=== PATIENT | female | born 1935 | race African-American/Black ===

== ENCOUNTER 2021-08-22 04:07 | Inpatient (IN) | payer MEDICARE, MEDICAID ==
[~2021-08-22] VITALS: Ht 172.7 cm; Wt 81.2 kg
[~2021-08-22 04:07] MED LIST: AMLO5TAB4; GABA-532 PO; LISI20TA31 PO; LORA1TAB PO; METO25TA6 PO; TRAM50TA3 PO
[2021-08-22] MEDS ORDERED: NITROGLYCERIN OINT 1GM/INCH UDPKT TD ONE (04:30)
[2021-08-22 05:05] LABS: BASOPHILS % 0.5 % (0.0-2.0); HEMATOCRIT. 39.5 % (36.0-48.0); HEMOGLOBIN. 13.2 g/dL (12.0-16.0); LYMPHOCYTES % 19.3 % (20.0-50.0); MEAN CORPUSCULAR HEMOGLOBIN 30.6 pg (28.0-32.0); MEAN PLATELET VOLUME 7.9 fl (7.4-10.4); MONOCYTES % 6.8 % (2.0-8.0); NEUTROPHILS % 71.4 % (40.0-76.0); PLATELET 254 x1000/uL (130-400)
[2021-08-22 05:12] LABS: CHLORIDE 106 mEq/L (98-107)
[2021-08-22 12:00] VITALS: BP 124/81
[2021-08-22 12:27] VITALS: BP 124/81
[2021-08-22] MEDS ORDERED: ASPI-1406 PO (13:27)
[2021-08-22] MEDS ORDERED: CHOL100046 (13:27)
[2021-08-22] MEDS ORDERED: CYM20 MT (13:27)
[2021-08-22] MEDS ORDERED: ATOR20TA65 MT (13:27)
[2021-08-22] MEDS ORDERED: HYDR-4001 PO (13:27)
[2021-08-22] MEDS ORDERED: LOSA50TA41 MT (13:27)
[2021-08-22] MEDS ORDERED: LACT10SO6 MT (13:27)
[2021-08-22] MEDS ORDERED: MULT-230 MT (13:27)
[2021-08-22] MEDS ORDERED: POLY17PO3 MT (13:27)
[2021-08-22] MEDS ORDERED: DOCU250C69 PO (13:27)
[2021-08-22 14:00] VITALS: BP 130/84
[2021-08-22] MEDS ORDERED: HYDROCODONE/ACETAMINOPHEN 5/325MG TABLET PO PRN (14:30)
[2021-08-22] MEDS ORDERED: ACETAMINOPHEN 325MG TABLET PO PRN (14:30)
[2021-08-22] MEDS ORDERED: ONDANSETRON HCL 4MG/2ML INJ IV PRN (14:30)
[2021-08-22] MEDS ORDERED: LORAZEPAM 1MG TABLET PO PRN (14:30)
[2021-08-22] MEDS ORDERED: NALOXONE HCL 0.4MG/ML VIAL IV PRN (14:45)
[2021-08-22] MEDS: ASPIRIN 81MG EC TABLET PO SCH (15:08)
[2021-08-22] MEDS: AMLODIPINE 5MG TABLET PO SCH (15:08)
[2021-08-22] MEDS: ENOXAPARIN 40MG/0.4ML SYR SUBCUT SCH (15:11)
[2021-08-22] MEDS ORDERED: DEXTROSE 50% WATER 50ML SYRINGE IV PRN (15:15)
[2021-08-22] MEDS ORDERED: LEVOFLOXACIN 500MG PREMIX 100 ML IV SCH (15:30)
[2021-08-22 16:00] VITALS: BP 136/88
[2021-08-22] MEDS: INSULIN LISPRO 100 UNITS/ML SUBCUT SCH ×2 (17:01→21:00)
[2021-08-22] MEDS: DOCUSATE SODIUM 250MG CAPSULE PO SCH (17:01)
[2021-08-22] MEDS: GABAPENTIN 300MG CAPSULE PO SCH (17:01)
[2021-08-22] MEDS: LISINOPRIL 20MG TABLET PO SCH (17:01)
[2021-08-22] MEDS: BLOOD SUGAR DIAGNOSTIC STRIP TEST SCH ×2 (17:01→20:32)
[2021-08-22 18:00] VITALS: BP 148/91
[2021-08-22 20:00] VITALS: BP 99/49
[2021-08-23] VITALS: BP 111/51
[2021-08-23 01:01] LABS: CREATINE KINASE 101 IU/L (26-192); HDL CHOLESTEROL 51 mg/dL (40-59)
[2021-08-23 01:02] LABS: LDL CHOLESTEROL 42 mg/dL (5-100); T4 FREE 1.11 ng/dL (0.76-1.46)
[2021-08-23 01:03] LABS: CREATINE KINASE MB FRACTION < 1.0 ng/mL (0.5-3.6)
[2021-08-23 01:19] LABS: FOLIC ACID (FOLATE) SERUM 12.8 ng/mL (>5.38)
[2021-08-23 03:06] LABS: CLARITY URINE TURBID (CLEAR); COLOR URINE YELLOW (YELLOW); KETONES URINE NEGATIVE (NEGATIVE); LEUKOCYTE ESTERASE URINE 3+ (NEGATIVE); NITRITE URINE NEGATIVE (NEGATIVE); OCCULT BLOOD URINE 2+ (NEGATIVE); PH URINE 6.5 (4.5-8.0); PROTEIN URINE 1+ (NEGATIVE); SPECIFIC GRAVITY URINE 1.015 (1.005-1.030)
[2021-08-23 04:00] VITALS: BP 110/53
[2021-08-23] MEDS: BLOOD SUGAR DIAGNOSTIC STRIP TEST SCH ×2 (04:55→12:10)
[2021-08-23] MEDS: INSULIN LISPRO 100 UNITS/ML SUBCUT SCH ×2 (06:21→12:40)
[2021-08-23 07:22] LABS: BASOPHILS % 0.3 % (0.0-2.0); EOSINOPHILS % 0.4 % (0.0-5.0); HEMATOCRIT. 35.6 % (36.0-48.0); HEMOGLOBIN. 11.8 g/dL (12.0-16.0); LYMPHOCYTES % 20.5 % (20.0-50.0); MEAN CORPUSCULAR HEMOGLOBIN 30.4 pg (28.0-32.0); MEAN CORPUSCULAR VOLUME 91.4 fL (81.0-99.0); MEAN PLATELET VOLUME 8.6 fl (7.4-10.4); MONOCYTES % 12.5 % (2.0-8.0); NEUTROPHILS % 66.3 % (40.0-76.0); PLATELET 242 x1000/uL (130-400); RED CELL DISTRIBUTION WIDTH 13.4 % (11.6-14.6)
[2021-08-23 07:41] LABS: CHLORIDE 107 mEq/L (98-107)
[2021-08-23 07:50] LABS: CREATINE KINASE 101 IU/L (26-192)
[2021-08-23 07:52] LABS: CREATINE KINASE MB FRACTION < 1.0 ng/mL (0.5-3.6)
[2021-08-23 08:00] VITALS: BP 104/50
[2021-08-23] MEDS: AMLODIPINE 5MG TABLET PO SCH (09:00)
[2021-08-23] MEDS: LISINOPRIL 20MG TABLET PO SCH (09:00)
[2021-08-23] MEDS ORDERED: METOPROLOL TARTRATE 25MG TABLET PO SCH (09:00)
[2021-08-23] MEDS: ASPIRIN 81MG EC TABLET PO SCH (09:36)
[2021-08-23] MEDS: DULOXETINE HCL 20MG DR CAPSULE PO SCH (09:36)
[2021-08-23] MEDS: ATORVASTATIN CALCIUM 20MG TABLET PO SCH (09:36)
[2021-08-23] MEDS: DOCUSATE SODIUM 250MG CAPSULE PO SCH ×2 (09:37→16:10)
[2021-08-23] MEDS: PANTOPRAZOLE 40MG DR TABLET PO SCH (09:37)
[2021-08-23] MEDS: GABAPENTIN 300MG CAPSULE PO SCH ×3 (09:37→18:46)
[2021-08-23 12:00] VITALS: BP 100/52
[2021-08-23] MEDS ORDERED: LEVOFLOXACIN 250MG PREMIX 50 ML IV SCH (15:30)
[2021-08-23 16:00] VITALS: BP 92/64
[2021-08-23] MEDS: CEFEPIME 2,000 MG in DEXT 5% WATER 100 ML IV SCH ×2 (16:10→23:12)
[2021-08-23] MEDS: ENOXAPARIN 40MG/0.4ML SYR SUBCUT SCH (16:11)
[2021-08-23 20:00] VITALS: BP 116/56
[2021-08-24] VITALS: BP 111/56
[2021-08-24 04:00] VITALS: BP 117/59
[2021-08-24] MEDS: PANTOPRAZOLE 40MG DR TABLET PO SCH (06:11)
[2021-08-24] MEDS: CYANOCOBALAMIN 1000MCG/ML VIAL IM SCH (09:20)
[2021-08-24] MEDS: ATORVASTATIN CALCIUM 20MG TABLET PO SCH (09:21)
[2021-08-24] MEDS: DOCUSATE SODIUM 250MG CAPSULE PO SCH ×2 (09:21→16:26)
[2021-08-24] MEDS: CLOPIDOGREL 75MG TABLET PO SCH (09:21)
[2021-08-24] MEDS: GABAPENTIN 300MG CAPSULE PO SCH ×3 (09:21→16:26)
[2021-08-24] MEDS: AMLODIPINE 5MG TABLET PO SCH (09:22)
[2021-08-24] MEDS: DULOXETINE HCL 20MG DR CAPSULE PO SCH (09:27)
[2021-08-24] MEDS: ASPIRIN 81MG EC TABLET PO SCH (09:29)
[2021-08-24] MEDS: CEFEPIME 2,000 MG in DEXT 5% WATER 100 ML IV SCH ×2 (13:21→22:24)
[2021-08-24] MEDS: ENOXAPARIN 40MG/0.4ML SYR SUBCUT SCH (16:26)
[2021-08-24 20:00] VITALS: BP 123/64
[2021-08-25] VITALS: BP 120/70
[2021-08-25 04:00] VITALS: BP 135/68
[2021-08-25] MEDS: PANTOPRAZOLE 40MG DR TABLET PO SCH (06:20)
[2021-08-25 08:00] VITALS: BP 123/55
[2021-08-25] MEDS: ATORVASTATIN CALCIUM 20MG TABLET PO SCH (09:42)
[2021-08-25] MEDS: GABAPENTIN 300MG CAPSULE PO SCH ×3 (09:42→17:45)
[2021-08-25] MEDS: CLOPIDOGREL 75MG TABLET PO SCH (09:42)
[2021-08-25] MEDS: ASPIRIN 81MG EC TABLET PO SCH (09:42)
[2021-08-25] MEDS: CEFEPIME 2,000 MG in DEXT 5% WATER 100 ML IV SCH ×2 (09:42→21:26)
[2021-08-25] MEDS: DULOXETINE HCL 20MG DR CAPSULE PO SCH (09:42)
[2021-08-25] MEDS: AMLODIPINE 5MG TABLET PO SCH (09:43)
[2021-08-25] MEDS: CYANOCOBALAMIN 1000MCG/ML VIAL IM SCH (09:44)
[2021-08-25] MEDS: DOCUSATE SODIUM 250MG CAPSULE PO SCH ×2 (09:44→17:45)
[2021-08-25 12:00] VITALS: BP 120/69
[2021-08-25] MEDS: LACTULOSE 20G/30ML UDC PO SCH ×3 (14:55→21:25)
[2021-08-25] MEDS: ENOXAPARIN 40MG/0.4ML SYR SUBCUT SCH (14:56)
[2021-08-25 16:00] VITALS: BP 139/63
[2021-08-25 20:00] VITALS: BP 125/59
[2021-08-25] MEDS ORDERED: POLYETHYLENE GLYCOL 3350 (17GM) 1 DOSE PACK PO SCH (21:00)
[2021-08-26] VITALS: BP 134/69
[2021-08-26 00:21] VITALS: BP 130/63
[2021-08-26 04:00] VITALS: BP 130/63
[2021-08-26] MEDS ORDERED: FAMOTIDINE 20MG TABLET PO SCH (07:10)
[2021-08-26 08:00] VITALS: BP 137/70
[2021-08-26] MEDS: DULOXETINE HCL 20MG DR CAPSULE PO SCH (08:09)
[2021-08-26] MEDS: GABAPENTIN 300MG CAPSULE PO SCH (08:09)
[2021-08-26] MEDS: CLOPIDOGREL 75MG TABLET PO SCH (08:09)
[2021-08-26] MEDS: ATORVASTATIN CALCIUM 20MG TABLET PO SCH (08:09)
[2021-08-26] MEDS: ASPIRIN 81MG EC TABLET PO SCH (08:09)
[2021-08-26 08:10] VITALS: BP 137/70
[2021-08-26] MEDS: AMLODIPINE 5MG TABLET PO SCH (08:10)
[2021-08-26] MEDS: CYANOCOBALAMIN 1000MCG/ML VIAL IM SCH (08:10)
[2021-08-26] MEDS: DOCUSATE SODIUM 250MG CAPSULE PO SCH (08:16)
[2021-08-26] MEDS: CEFEPIME 2,000 MG in DEXT 5% WATER 100 ML IV SCH (08:16)
[2021-08-26] MEDS ORDERED: NA PHOS,M-B/NA PHOS,DI-BA ENEMA 118ML PR SCH (08:30)
[2021-09-06] MEDS ORDERED: CYANOCOBALAMIN 1000MCG/ML VIAL IM SCH (09:00)
== END 2021-08-26 10:48 | DRG 64 ==
LOC: ER 04:07 → 8WST 04:55 → ENRESERV 08:41
PROVIDERS: ADMIT Internal Medicine; ATTEND Internal Medicine
PROC: 4A10X4Z Monitoring of Central Nervous Electrical Activity, External Approach (ICD-10-PCS; principal; 2021-08-23)
DX: I63.9 Cerebral infarction, unspecified (principal); G92.8 Other toxic encephalopathy; N39.0 Urinary tract infection, site not specified; I69.354 Hemiplegia and hemiparesis following cerebral infarction affecting left non-dominant side; F03.90 Unspecified dementia, unspecified severity, without behavioral disturbance, psychotic disturbance, mood disturbance, and anxiety; F41.9 Anxiety disorder, unspecified; F32.A Depression, unspecified; E78.00 Pure hypercholesterolemia, unspecified; I10 Essential (primary) hypertension; R26.89 Other abnormalities of gait and mobility; M13.88 Other specified arthritis, other site; Z20.822 Contact with and (suspected) exposure to COVID-19; R07.89 Other chest pain; B96.4 Proteus (mirabilis) (morganii) as the cause of diseases classified elsewhere; E53.8 Deficiency of other specified B group vitamins; E78.5 Hyperlipidemia, unspecified; R13.10 Dysphagia, unspecified; R53.81 Other malaise; Z79.899 Other long term (current) drug therapy
CPT/HCPCS: 36415; 70551; 71045; 80048; 80053; 80061; 81003; 82140; 82550; 82553; 82607; 82746; 82962; 83036; 83880; 84439; 84443; 84481; 84484; 85025; 87077; 87186; 87426; 92523; 92610; 93005; 93306; 93880; 93970; 97162; 97166; 99285; A6261; C1893; J0692; J1650; J1956; J3420; J7040; J7060

== ENCOUNTER → 2022-01-03 | Outpatient (CLI) | payer MEDICARE, MEDICAID ==
[~2022-01-03] MED LIST changes: +ASPI-1406 PO; +ATOR20TA65 MT; +CYM20 MT; +DOCU250C69 PO; +HYDR-4001 PO; +IOHEXOL-300 100 ML BOTTLE ONE; +POLY17PO3 MT; -TRAM50TA3 PO
== END | disposition home or self-care (01) ==
LOC: CT 08:33
PROVIDERS: ATTEND Internal Medicine Nephrology
DX: N20.0 Calculus of kidney (principal); K62.89 Other specified diseases of anus and rectum; N28.1 Cyst of kidney, acquired; K76.89 Other specified diseases of liver; K76.0 Fatty (change of) liver, not elsewhere classified; J98.11 Atelectasis; R59.9 Enlarged lymph nodes, unspecified
CPT/HCPCS: 74177; Q9967